=== PATIENT | male | born 1970 | race Caucasian/White ===

== ENCOUNTER 2023-05-27 10:56 | Emergency (ER) | payer BC, OTHER, SELFPAY ==
[2023-05-27 11:02] VITALS: BP 162/95
[2023-05-27 11:03] VITALS: PULSE 94; O2SAT 93
--- NOTE | 2023-05-27 11:06 | DI.RAD.S_ITS ---
PROCEDURE: XR CHEST 2V INDICATIONS: short of breath TECHNIQUE: 2 views of the chest were acquired. COMPARISON: [facility], , CHEST 2 VIEW, 12/02/2016, 9:35. FINDINGS: Surgical changes and devices: None. Lungs and pleura: Pulmonary vascular congestion is seen. Subtle patchy opacities are seen in bilateral infrahilar region. No pleural effusions or pneumothorax. Mediastinum: Mediastinal contours are normal. Heart size is normal. Bones and chest wall: No suspicious bony abnormalities. Soft tissues appear unremarkable. IMPRESSION: Mild pulmonary vascular congestion. Small bilateral infrahilar infiltrates versus atelectasis cannot be excluded. No pleural effusion or pneumothorax. Dictated by: Jama Allen M.D. on 05/27/2023 at 12:09 Approved by: Jama Allen M.D. on 05/27/2023 at 12:13
[2023-05-27 11:08] VITALS: BP 162/95; PULSE 92; RESP 22; TEMP 36.8; O2SAT 93; BMI 36.8
--- NOTE | 2023-05-27 11:20 | ED_ITS ---
HPI - URI/Sore Throat <Silvino Roberts PA-C - Last Filed: 05/27/23 13:35> General Chief Complaint: Upper Respiratory Symptoms Stated Complaint: chest cold poss phneumnia Time Seen by Provider: 05/27/23 11:10 Source: patient Mode of arrival: Ambulatory History of Present Illness HPI Narrative: This is a 52-year-old male presents to emergency depart due to Three days of chest congestion, headache, fever, cough, diarrhea. No blood in the stool. States cough is productive. Has not COVID tested. Reports a productive cough with ?green gunk stuff? and shortness of breath. History of pneumonia in 2017 and is curious if it is the same. Denies chest pain, abdominal pain, or any other concerning signs or symptoms. Related Data Home Medications Medication Instructions Recorded Confirmed lisinopril 40 mg tablet 40 mg PO BEDTIME 05/27/23 06/02/23 Previous Rx's Medication Instructions Recorded albuterol sulfate 1.25 mg/3 mL 1.25 mg (3 mL) inhalation Q4-6H 06/03/23 solution for nebulization PRN shortness of breath or wheezing #75 mL albuterol sulfate 90 mcg/actuation 2 puff inhalation Q6H PRN 06/03/23 aerosol inhaler shortness of breath or wheezing 30 days #8.5 grams nebulizer and compressor #1 ea 06/03/23 Allergies Allergy/AdvReac Type Severity Reaction Status Date / Time No Known Drug Allergies Allergy Verified 06/02/23 13:25 Review of Systems <Silvino Roberts PA-C - Last Filed: 05/27/23 13:35> Review of Systems Narrative: GENERAL: Reports fevers Denies chills, fatigue, malaise, sweats. HEENT: Denies sinus pain, ear pain, sore throat, difficulty swallowing, dizziness. RESPIRATORY: Reports chest congestion, productive cough, shortness of breath CARDIOVASCULAR: Denies chest pain, palpitations, orthopnea, edema, GASTROINTESTINAL: Denies nausea, vomiting, abdominal pain, diarrhea, constipation, melena. : Denies dysuria, frequency, incontinence, hematuria, urinary retention. MUSCULOSKELETAL: denies weakness, joint pain, or bony pain SKIN: Denies rash, skin lesions, or other NEUROLOGIC: Denies weakness, headache, numbness, change in speech, confusion, seizures, incoordination. PSYCHIATRIC: No concerning psychosocial issues. 12 point review of systems is negative except for those stated above Patient History <Silvino Roberts PA-C - Last Filed: 05/27/23 13:35> Medical History Hypertension Smoker Surgical History (Updated 06/02/23 @ 17:43 by Neptali James DO) No pertinent past surgical history Family History (Updated 06/02/23 @ 17:43 by Neptali James DO) Mother No pertinent past medical history Father No pertinent past medical history Social History household members: spouse Smoking Status: Current every day smoker alcohol intake: current Smoking Status: Current every day smoker alcohol intake frequency: a few times a week Substance Use Type: does not use Exam <Silvino Roberts PA-C - Last Filed: 05/27/23 13:35> Narrative Exam Narrative: GENERAL: Well-developed patient, in mild distress. HEAD: Atraumatic. Normocephalic. EYES: Pupils equal round and reactive. Extraocular motions intact. No scleral icterus. No injection or drainage. ENT: Nose without bleeding, purulent drainage. Throat without erythema, tonsillar hypertrophy or exudate. Airway patent. NECK: Trachea midline. Non tender CARDIOVASCULAR: Regular rate and rhythm without murmurs, gallops, or rubs. RESPIRATORY: Coarse breath sounds bilaterally, no wheezing GASTROINTESTINAL: Abdomen soft, non-tender, nondistended. EXTREMITIES: No edema or joint tenderness. BACK: Nontender without deformity or crepitance. No flank tenderness. NEURO: AOx3. SKIN: No rash or erythema of visible areas Initial Vital Signs Initial Vital Signs: Vital Signs Blood Pressure 162/95 H 05/27/23 11:02 <Valentino Pike MD - Last Filed: 06/10/23 12:53> Initial Vital Signs Initial Vital Signs: Vital Signs Blood Pressure 162/95 H 05/27/23 11:02 Course <Silvino Roberts PA-C - Last Filed: 05/27/23 13:35> Orders Ordered: Discontinued Medications Albuterol/Ipratropium (Albuterol/Ipratropium 3 Ml Ampul) 3 ml INH NOW ONE Stop: 05/27/23 11:27 Last Admin: 05/27/23 11:29 Dose: 3 ml Documented By: AARON Vital Signs Vital signs: Vital Signs - 8 hr 05/27/23 11:02 05/27/23 11:03 05/27/23 11:08 Temperature 98.2 F Pulse Rate 94 H 92 H Respiratory Rate 22 Blood Pressure 162/95 H 162/95 H Pulse Oximetry 93 93 Oxygen Delivery Method Room Air 05/27/23 11:30 Temperature Pulse Rate 97 H Respiratory Rate 18 Blood Pressure Pulse Oximetry 92 Oxygen Delivery Method Room Air <Valentino Pike MD - Last Filed: 06/10/23 12:53> Orders Ordered: Discontinued Medications Albuterol/Ipratropium (Albuterol/Ipratropium 3 Ml Ampul) 3 ml INH NOW ONE Stop: 05/27/23 11:27 Last Admin: 05/27/23 11:29 Dose: 3 ml Documented By: AARON Vital Signs Vital signs: Vital Signs - 8 hr 05/27/23 11:02 05/27/23 11:03 05/27/23 11:08 Temperature 98.2 F Pulse Rate 94 H 92 H Respiratory Rate 22 Blood Pressure 162/95 H 162/95 H Pulse Oximetry 93 93 Oxygen Delivery Method Room Air 05/27/23 11:30 Temperature Pulse Rate 97 H Respiratory Rate 18 Blood Pressure Pulse Oximetry 92 Oxygen Delivery Method Room Air MDM - URI/Sore Throat <Silvino Roberts PA-C - Last Filed: 05/27/23 13:35> Lab Data 05/27/23 12:25 05/27/23 12:25 Labs: Lab Results 05/27/23 05/27/23 Range/Units 11:11 12:25 WBC 10.9 (4.5-11.0) X10^3/uL RBC 4.90 (4.5-5.9) X10^6/uL Hgb 16.0 (13.5-17.5) g/dL Hct 46.0 (41-53) % MCV 93.7 (80-100) fL MCH 32.6 (26-34) PG MCHC 34.8 (30-36) % RDW 12.6 (11.6-14.8) % Plt Count 154 (150-400) X10^3/uL Neut % (Auto) 84.0 H (50-75) % Lymph % (Auto) 5.6 L (25-40) % [place] % (Auto) 9.6 (3-14) % Eos % (Auto) 0.3 L (2-4) % Baso % (Auto) 0.5 (0-2) % Neut # (Auto) 9200 H (4963-7504) /uL Lymph # (Auto) 600 L (6840-0895) /uL [place] # (Auto) 1000 H (0-900) /uL Eos # (Auto) 0 (0-450) /uL Baso # (Auto) 100 (0-100) /uL Sodium 134 L (137-145) mmol/L Potassium 4.6 (3.4-5.1) mmol/L Chloride 96 L (98-107) mmol/L Carbon Dioxide 32 (22-32) mmol/L BUN 11 (9-20) mg/dL Creatinine 0.62 L (0.66-1.25) mg/dL Estimated GFR > 60 (>60) mL/min BUN/Creatinine Ratio 17.7 (6-22) Glucose 103 H (70-100) mg/dL Calcium 9.7 (8.4-10.2) mg/dL Total Bilirubin 1.2 (0.2-1.3) mg/dL AST 39 (17-59) IU/L ALT 34 (<50) IU/L Alkaline Phosphatase 58 (38-126) U/L NT-Pro-B Natriuret Pep 44 (<125) pg/mL Total Protein 7.9 (6.3-8.2) g/dL Albumin 4.1 (3.5-5.0) g/dL Globulin 3.8 (1.7-4.1) g/dL Albumin/Globulin Ratio 1.1 (1.0-2.8) SARS-CoV-2 (PCR) Negative (Negative) Influenza A (RT-PCR) Flu a positive H (NEGATIVE) Influenza B (RT-PCR) Flu b negative (NEGATIVE) RSV (PCR) Negative (Negative) Imaging Data Chest x-ray: Radiologist's Impression: [address] [id number] XRay Report Signed Patient: Nam Andujar MR#: [id number] : 1970 Acct:[id number] Age/Sex: 52 / M Date of Service: 05/27/23 Loc: ED Accession Number: [id number] Procedure: XR chest 2V Ordering Provider: Valentino Pike MD PROCEDURE: XR CHEST 2V INDICATIONS: short of breath TECHNIQUE: 2 views of the chest were acquired. COMPARISON: [facility], , CHEST 2 VIEW, 12/02/2016, 9:35. FINDINGS: Surgical changes and devices: None. Lungs and pleura: Pulmonary vascular congestion is seen. Subtle patchy opacities are seen in bilateral infrahilar region. No pleural effusions or pneumothorax. Mediastinum: Mediastinal contours are normal. Heart size is normal. Bones and chest wall: No suspicious bony abnormalities. Soft tissues appear unremarkable. IMPRESSION: Mild pulmonary vascular congestion. Small bilateral infrahilar infiltrates versus atelectasis cannot be excluded. No pleural effusion or pneumothorax. Dictated by: Jama Allen M.D. on 05/27/2023 at 12:09 Approved by: Jama Allen M.D. on 05/27/2023 at 12:13 MDM Narrative Medical decision making narrative: MDM * differential diagnosis includes but not limited to COVID, influenza, pneumonia, RSV, viral illness * Prior records reviewed: Patient has not been to this emergency department in the past * My lab interpretation: BMP unremarkable, CMP showed no significant changes. CBC showed no leukocytosis. Respiratory panel positive for influenza A. * My imgaing interpretation: Chest x-ray showed mild pulmonary vascular congestion as well as small bilateral infrahilar infiltrates versus atelectasis. * Clinical Decision Rules/Scores evaluated: None * Independent discussions with: None ED Course: This is a 52-year-old male presents to the emergency department complaining of sinus congestion that is spread to his chest. Lab work showed no leukocytosis but viral panel was positive for influenza A. We will treat with Tamiflu as patient has a possible history of COPD. Chest x-ray did show possible small bilateral infrahilar infiltrates versus atelectasis which was discussed with my attending physician. Elected to not treat for any kind of pneumonia. Shared Decision Making: Discussed plan with patient who is comfortable with the plan. Social Considerations: None Disposition: Discharged to home <Valentino Pike MD - Last Filed: 06/10/23 12:53> Lab Data Labs: Lab Results 05/27/23 05/27/23 Range/Units 11:11 12:25 WBC 10.9 (4.5-11.0) X10^3/uL RBC 4.90 (4.5-5.9) X10^6/uL Hgb 16.0 (13.5-17.5) g/dL Hct 46.0 (41-53) % MCV 93.7 (80-100) fL MCH 32.6 (26-34) PG MCHC 34.8 (30-36) % RDW 12.6 (11.6-14.8) % Plt Count 154 (150-400) X10^3/uL Neut % (Auto) 84.0 H (50-75) % Lymph % (Auto) 5.6 L (25-40) % [place] % (Auto) 9.6 (3-14) % Eos % (Auto) 0.3 L (2-4) % Baso % (Auto) 0.5 (0-2) % Neut # (Auto) 9200 H (2226-5127) /uL Lymph # (Auto) 600 L (5199-1946) /uL [place] # (Auto) 1000 H (0-900) /uL Eos # (Auto) 0 (0-450) /uL Baso # (Auto) 100 (0-100) /uL Sodium 134 L (137-145) mmol/L Potassium 4.6 (3.4-5.1) mmol/L Chloride 96 L (98-107) mmol/L Carbon Dioxide 32 (22-32) mmol/L BUN 11 (9-20) mg/dL Creatinine 0.62 L (0.66-1.25) mg/dL Estimated GFR > 60 (>60) mL/min BUN/Creatinine Ratio 17.7 (6-22) Glucose 103 H (70-100) mg/dL Calcium 9.7 (8.4-10.2) mg/dL Total Bilirubin 1.2 (0.2-1.3) mg/dL AST 39 (17-59) IU/L ALT 34 (<50) IU/L Alkaline Phosphatase 58 (38-126) U/L NT-Pro-B Natriuret Pep 44 (<125) pg/mL Total Protein 7.9 (6.3-8.2) g/dL Albumin 4.1 (3.5-5.0) g/dL Globulin 3.8 (1.7-4.1) g/dL Albumin/Globulin Ratio 1.1 (1.0-2.8) SARS-CoV-2 (PCR) Negative (Negative) Influenza A (RT-PCR) Flu a positive H (NEGATIVE) Influenza B (RT-PCR) Flu b negative (NEGATIVE) RSV (PCR) Negative (Negative) Discharge Plan Departure Patient Disposition: Home Clinical Impression: Influenza A Instructions: DI for Influenza -- Adult Activity Restrictions/Additional Instructions: Thank you for coming to the [facility] Emergency Department today. Your testing came back positive for influenza A. Please take the antivirals as prescribed. I also do recommend you speak with your primary care provider for possible COPD workup as this maybe a possibility for you. I sent your medication to [facility] in [place]. I hope you feel better soon. Please follow up with your primary care provider within a week if your symptoms continue. If you do not have a primary care provider please contact the [facility] Resource line at [phone]. They will ask some questions about your medical history and help you get set up with a provider in the community. Prescriptions: No Action lisinopril 40 mg Tablet 40 mg PO BEDTIME albuterol sulfate 1.25 mg/3 mL solution for nebulization 1.25 mg inhalation Q4-6H PRN (Reason: shortness of breath or wheezing) Qty: 75 0RF albuterol sulfate 90 mcg/actuation HFA aerosol inhaler 2 puff inhalation Q6H PRN (Reason: shortness of breath or wheezing) 30 Days Qty: 8.5 0RF (DME) nebulizer and compressor Device See Rx Instructions .Route Qty: 1 0RF Rx Instructions: One nebulizer and compressor Referrals: Maria Dolores Edwards ARNP [Primary Care Provider] - Stand Alone Forms: Patient Portal/API, Work Release Note ED Sign-out <Valentino Pike MD - Last Filed: 06/10/23 12:53> Cosign ED Attending Cosignature Attestation: I was immediately available in the department for consultation. This documentation has been reviewed and I agree with assessment and plan. Supervised by Valentino Pike MD
[2023-05-27] MEDS: ALBUTEROL/IPRATROPIUM 3 ML AMPUL INH (11:29)
[2023-05-27 11:30] VITALS: PULSE 97; RESP 18; O2SAT 92
[2023-05-27 11:51] LABS: Influenza B - CEPHEID Flu B NEGATIVE (NEGATIVE); Respiratory Syncytial Virus Negative (Negative)
[2023-05-27 12:38] LABS: COVID-19 CEPHEID 4-PLEX PCR Negative (Negative)
[2023-05-27 12:39] LABS: Add Manual Diff / Slide Review NO; Basophils Absolute Auto 100 /uL (0-100); Basophils Percent Auto 0.5 % (0-2); Eosinophils Absolute Auto 0 /uL (0-450); Eosinophils Percent Auto 0.3 % (2-4); Lymphocytes Absolute Auto 600 /uL (1100-4500); Lymphocytes Percent Auto 5.6 % (25-40); Mean Corpuscular HGB Conc 34.8 % (30-36); Mean Corpuscular Hemoglobin 32.6 PG (26-34); Mean Corpuscular Volume 93.7 fL (80-100); Monocytes Absolute Auto 1000 /uL (0-900); Monocytes Percent Auto 9.6 % (3-14); Neutrophils Absolute Auto 9200 /uL (1500-7000); Platelet Count 154 X10^3/uL (150-400); Red Cell Distribution Width 12.6 % (11.6-14.8); White Blood Cell Count 10.9 X10^3/uL (4.5-11.0)
[2023-05-27 12:40] LABS: Influenza A - CEPHEID Flu A POSITIVE (NEGATIVE)
[2023-05-27 12:50] LABS: Alanine Aminotransferase 34 IU/L (<50); Albumin 4.1 g/dL (3.5-5.0); Albumin Globulin Ratio 1.1 (1.0-2.8); Alkaline Phosphatase 58 U/L (38-126); Aspartate Aminotransferase 39 IU/L (17-59); BUN Creatinine Ratio 17.7 (6-22); Bilirubin Total 1.2 mg/dL (0.2-1.3); Blood Urea Nitrogen 11 mg/dL (9-20); Calcium 9.7 mg/dL (8.4-10.2); Carbon Dioxide 32 mmol/L (22-32); Chloride 96 mmol/L (98-107); Estimated Glomerular Filt Rate > 60 mL/min (>60); Globulin 3.8 g/dL (1.7-4.1); Glucose 103 mg/dL (70-100); HEMOLYSIS 39 (0-50); Potassium 4.6 mmol/L (3.4-5.1); Sodium 134 mmol/L (137-145); Total Protein 7.9 g/dL (6.3-8.2)
[2023-05-27 12:58] LABS: NT-proBNP (BNP-Adult 18+) 44 pg/mL (<125)
== END 2023-05-27 13:12 | disposition home or self-care (01) ==
PROVIDERS: Emergency Medicine; Emergency Provider Physician Assistant Medical; PCP Nurse Practitioner Family
DX: J10.1 Influenza due to other identified influenza virus with other respiratory manifestations (principal); F17.210 Nicotine dependence, cigarettes, uncomplicated
CPT/HCPCS: 0241U; 36415; 71046; 80053; 83880; 85025; 94640; 99284

== ENCOUNTER 2023-06-02 13:15 | Observation (INO) | payer BC, OTHER, SELFPAY ==
[2023-06-02] VITALS (17 sets, daily range): BP systolic 143–155; BP diastolic 67–98; PULSE 82–98; RESP 16–30; TEMP 35.7–37.4; O2SAT 91–99; BMI 34.9
--- NOTE | 2023-06-02 13:28 | ED_ITS ---
HPI - General Adult General Chief complaint: Fever Stated complaint: flu/poss pnemonia Time Seen by Provider: 06/02/23 13:28 Source: patient Mode of arrival: Wheelchair History of Present Illness HPI narrative: 52-year-old gentleman with a history of hypertension who was diagnosed with influenza a on the and feeling worse with increasing cough and significant exertional dyspnea. Unable to speak full sentences on initial presentation. He is not on home oxygen but does have a long smoking history. Does not carry a diagnosis of COPD but does have inhalers that he has used at home in the past. He notes significant chest tightness, increasing purulent sputum, increasing fevers, increasing general fatigue. He is not having abdominal pain, nausea, vomiting, diarrhea, palpitations or overt chest pain. Related Data Home Medications Medication Instructions Recorded Confirmed lisinopril 40 mg tablet 40 mg PO BEDTIME 05/27/23 06/02/23 Allergies Allergy/AdvReac Type Severity Reaction Status Date / Time No Known Drug Allergies Allergy Verified 06/02/23 13:25 Review of Systems Review of Systems Narrative: Pertinent positive and negative findings as per HPI Patient History Medical History Hypertension Smoker Surgical History (Updated 06/02/23 @ 17:43 by Neptlai James DO) No pertinent past surgical history Family History (Updated 06/02/23 @ 17:43 by Neptali James DO) Mother No pertinent past medical history Father No pertinent past medical history Social History Smoking Status: Current every day smoker Smoking Status: Current every day smoker alcohol intake frequency: a few times a week Substance Use Type: does not use Exam Initial Vital Signs Initial Vital Signs: Vital Signs Temperature 99.3 F 06/02/23 13:21 Pulse Rate 98 H 06/02/23 13:21 Respiratory Rate 30 H 06/02/23 13:21 Blood Pressure 143/82 H 06/02/23 13:21 Pulse Oximetry 92 06/02/23 13:21 Oxygen Delivery Method Room Air 06/02/23 13:21 General: Acutely ill-appearing with significant productive cough, speaking in poor to 5 word sentences is Able to give a complete and coherent history. HEENT: Moist mucous membranes, normal sclera with reactive pupils, Neck: No JVD, supple,. No cervical adenopathy Respiratory: Lungs with scattered wheeze and rhonchi. Diminished overall air movement Cardiac: Slight tachycardia but otherwise Regular rate and rhythm no murmurs no bruits Abdomen: Soft, nontender, good bowel tones, no flank pain Skin: Warm and dry, no rashes Neurologic: Globally weak but Grossly neurologically intact with no obvious asymmetries or abnormalities Extremities: No trauma, well perfused, no lower extremity edema Psych: Cooperative, appropriate insight and affect Course Orders Ordered: ED Orders 06/02/23 13:29 XR chest 2V Stat 06/02/23 13:40 Complete Blood Count AUTO DIFF Stat Comprehensive Metabolic Panel Stat Lactate (Lactic Acid) Stat 06/02/23 13:45 Blood Culture Stat 06/02/23 14:47 VBG [Venous Blood Gas] Stat 06/02/23 14:51 CT angio chest PE protocol Stat 06/02/23 14:58 Sputum Culture Stat 06/02/23 15:20 BNP [NT-proBNP (BNP-Adult 18+)] Stat Trop I [Troponin I] Stat 06/02/23 15:50 ABG [Arterial Blood Gas] Stat Acetaminophen (Acetaminophen 325 Mg Tablet) 650 mg PO Q6H PRN PRN Reason: Fever/Mild Pain (1-3) Albuterol (Albuterol 2.5 Mg/3 Ml Neb (Adult)) 2.5 mg INH [id number] PRN PRN Reason: Shortness Of Breath Doxycycline Hyclate (Doxycycline Hyclate 100 Mg Tablet) 100 mg PO BID [facility] Enoxaparin Sodium (Enoxaparin 40 Mg/0.4 Ml Syringe) 40 mg SUBCUT DAILY [facility] Ceftriaxone Sodium 1,000 mg/ (Sodium Chloride) 100 mls @ 200 mls/hr IV Q24H [facility] Lisinopril (Lisinopril 20 Mg Tablet) 40 mg PO BEDTIME [facility] Naloxone HCl (Naloxone 0.4 Mg/Ml Vial) 0.2 mg IV Q2MIN PRN PRN Reason: Opiate Reversal Ondansetron HCl (Ondansetron 4 Mg/2 Ml Inj) 4 mg IV Q8HR PRN PRN Reason: Nausea And Vomiting Prednisone (Prednisone 20 Mg Tablet) 40 mg PO DAILY [facility] Discontinued Medications Albuterol/Ipratropium (Albuterol/Ipratropium 3 Ml Ampul) 3 ml INH NOW ONE Stop: 06/02/23 13:30 Last Admin: 06/02/23 13:51 Dose: 3 ml Documented By: PILO Benzonatate (Benzonatate 100 Mg Capsule) 100 mg PO NOW ONE Stop: 06/02/23 13:30 Last Admin: 06/02/23 13:46 Dose: 100 mg Documented By: JIM Sodium Chloride (Normal Saline 0.9%) 1,000 mls @ 1,000 mls/hr IV BOLUS ONE Stop: 06/02/23 14:28 Last Infusion: 06/02/23 14:58 Dose: Infused Documented By: Admin: 06/02/23 13:47 Dose: 1,000 mls/hr Documented By: JIM Piperacillin Sod/Tazobactam (Sod 4.5 gm/ Sodium Chloride) 100 mls @ 200 mls/hr IV NOW ONE Stop: 06/02/23 14:50 Last Infusion: 06/02/23 15:55 Dose: Infused Documented By: Admin: 06/02/23 15:04 Dose: 200 mls/hr Documented By: KEVYN Ketorolac Tromethamine (Ketorolac 30 Mg/Ml Vial) 15 mg IV NOW ONE Stop: 06/02/23 13:30 Last Admin: 06/02/23 13:46 Dose: 15 mg Documented By: JIM Methylprednisolone (Methylprednisolone 125 Mg/2 Ml Vial) 125 mg IV NOW ONE Stop: 06/02/23 14:50 Last Admin: 06/02/23 15:05 Dose: 125 mg Documented By: KEVYN Vital Signs Vital signs: Vital Signs - 8 hr 06/02/23 13:21 06/02/23 13:46 06/02/23 13:54 Temperature 99.3 F 99.3 F Pulse Rate 98 H Respiratory Rate 30 H Blood Pressure 143/82 H Pulse Oximetry 92 99 Oxygen Delivery Method Room Air Room Air 06/02/23 14:36 06/02/23 14:44 06/02/23 14:44 Temperature Pulse Rate 92 H Respiratory Rate 24 Blood Pressure 147/87 H Pulse Oximetry 92 92 Oxygen Delivery Method 06/02/23 15:05 06/02/23 15:06 06/02/23 15:06 Temperature Pulse Rate 93 H 96 H Respiratory Rate 25 H Blood Pressure 149/98 H Pulse Oximetry 93 93 Oxygen Delivery Method 06/02/23 15:30 06/02/23 15:30 06/02/23 16:00 Temperature Pulse Rate 90 Respiratory Rate 24 Blood Pressure 150/70 H 150/67 H Pulse Oximetry 94 Oxygen Delivery Method 06/02/23 16:00 06/02/23 16:30 06/02/23 16:30 Temperature Pulse Rate 87 87 Respiratory Rate 22 22 Blood Pressure 146/73 H Pulse Oximetry 92 92 Oxygen Delivery Method Room Air Room Air Medical Decision Making Lab Data 06/02/23 13:40 06/02/23 13:40 Labs: Lab Results 06/02/23 06/02/23 06/02/23 Range/Units 13:40 15:20 15:50 WBC 19.0 H (4.5-11.0) X10^3/uL RBC 4.77 (4.5-5.9) X10^6/uL Hgb 15.3 (13.5-17.5) g/dL Hct 44.4 (41-53) % MCV 92.9 (80-100) fL MCH 32.0 (26-34) PG MCHC 34.5 (30-36) % RDW 12.9 (11.6-14.8) % Plt Count 311 (150-400) X10^3/uL Neut % (Auto) 86.2 H (50-75) % Lymph % (Auto) 5.6 L (25-40) % [place] % (Auto) 7.3 (3-14) % Eos % (Auto) 0.5 L (2-4) % Baso % (Auto) 0.4 (0-2) % Neut # (Auto) 64530 H (0496-1279) /uL Lymph # (Auto) 1100 (1156-0687) /uL [place] # (Auto) 1400 H (0-900) /uL Eos # (Auto) 100 (0-450) /uL Baso # (Auto) 100 (0-100) /uL ABG Sample Site Right radial ABG pH 7.45 (7.35-7.45) ABG pCO2 38.8 (35-45) mmHg ABG pO2 59 L (80-100) mmHg ABG HCO3 27 (23-27) mmol/L ABG Total CO2 28 H (23-27) mmol/L ABG O2 Saturation 91 L (95-100) % ABG Base Excess 3.0 (-2-3) mmol/L FiO2 21 Sodium 134 L (137-145) mmol/L Potassium 4.5 (3.4-5.1) mmol/L Chloride 99 (98-107) mmol/L Carbon Dioxide 28 (22-32) mmol/L BUN 13 (9-20) mg/dL Creatinine 0.59 L (0.66-1.25) mg/dL Estimated GFR > 60 (>60) mL/min BUN/Creatinine Ratio 22.0 (6-22) Glucose 111 H (70-100) mg/dL Lactate 1.0 (0.7-2.1) mmol/L Calcium 9.7 (8.4-10.2) mg/dL Total Bilirubin 0.8 (0.2-1.3) mg/dL AST 31 (17-59) IU/L ALT 52 H (<50) IU/L Alkaline Phosphatase 75 (38-126) U/L Troponin I < 0.012 (0.01-0.034) ng/mL NT-Pro-B Natriuret Pep 53 (<125) pg/mL Total Protein 8.5 H (6.3-8.2) g/dL Albumin 4.1 (3.5-5.0) g/dL Globulin 4.4 H (1.7-4.1) g/dL Albumin/Globulin Ratio 0.9 L (1.0-2.8) MDM Narrative Medical decision making narrative: CC: Patient seen on May 27 diagnosed with influenza a, worsening respiratory distress Complicating co-morbidities: COPD with a long smoking history, hypertension Data collected from: patient Medical records reviewed: Labs and notes from his May 27 visit are reviewed Differential considered: Influenza pneumonia, bacterial pneumonia, sepsis, COPD exacerbation, PE, acute coronary syndrome Exam documented above, pertinent findings include: Productive cough, scattered wheeze and rhonchi. Minimal response to DuoNeb. Lab Test results independently reviewed as above. Pertinent findings: CBC: Significant leukocytosis at 19,000 with 86% neutrophils. No significant anemia ABG shows a pH of 7.45, on room air PO2 is 59, CO2 is 28. Chemistries are relatively reassuring with no acute kidney injury Lactate is normal at 1 Imaging studies independently reviewed: Chest x-ray shows [id number] diffuse lung disease similar to prior CT angiogram shows no evidence of pulmonary embolism but does suggest tree in bud findings in the pulmonary parenchyma suggestive of infectious etiology beyond a viral infection Consultations:DR James, hospitalist Treatments: Fluid, Solu-Medrol, Zosyn antibiotics, Toradol parenterally, benzonatate to help with cough, DuoNeb Re-evaluations: Patient is feeling significantly better however saturations are still at 91% and when he is up and walking dropped down to 89% with respiratory rate remaining in the mid 30s. He feels that hospitalization would be prudent as well. Discussion: 52-year-old gentleman with influenza a, probable COPD but has not yet been formally diagnosed and now, increasing exertional dyspnea, productive cough, fevers and significantly elevated leukocytosis suggesting secondary pneumonia. He is relatively hypoxic on room air and CO2 is low suggesting he is tachypneic in an effort to compensate. will talk with hospitalist service about hospital admission. He is not complaining of overt chest pain at this time but will add troponin as well as BNP. He is not meeting criteria for severe sepsis or septic shock however with his increased work of breathing with obvious decline in the setting of known influenza a and now bacterial superinfection with a significant exertional dyspnea I am concerned for worsening respiratory failure and believe hospitalization would be appropriate Additional Information: Severe Sepsis Criteria [x ] bacterial source of infection suspected and documented [ x ] 2 SIRS Criteria met [ x ] HR >90 [ x] RR >20 [ ] fever or hypothermia [ x ] leukocytosis/leukopenia/bandemia [ ] Evidence of at least 1 organ system dysfunction [ ] Lactate > 2 [ ] BP < 90 or MAP <65, >40mm decrease from normal baseline [ ] Creat > 2.0 [ ] T. Bili > 2.0 [ ] platelet count < 100k [ ] altered mental status [ ] mechanical ventilation [ ] provider documentation of severe sepsis Severe Sepsis Determination. the patient has been screened and [ ] DOES meet criteria for severe sepsis [ x ] DOES NOT meet criteria for severe sepsis Goal directed treatment Within 3 hours [x ] blood cx drawn prior to abx [ x ] broad spectrum abx started [ x ] lactic acid level checked [ ] lactic redrawn within 6 hours if >2.0 Septic Shock Criteria [ ] lactic > 4 at any time [ ] SBP ,90 or MAP , 65 [ ] documentation of septic shock Time Septic Shock diagnosed: [ ] Septic Shock Determination. the patient has been screened and [ ] DOES meet criteria for septic shock [ x ] DOES NOT meet criteria for septic shock Discharge Plan Departure Patient Disposition: Admitted as Observation Clinical Impression: Influenza A, COPD exacerbation Pneumonia Qualifiers: Pneumonia type: due to unspecified organism Admit Date/Time: 06/02/23 16:59 Admit Provider: Neptali James
--- NOTE | 2023-06-02 13:29 | DI.RAD.S_ITS ---
PROCEDURE: XR CHEST 2V INDICATIONS: cough TECHNIQUE: 2 views of the chest were acquired. COMPARISON: [facility], , XR CHEST 2V, 05/27/2023, 11:10. [facility], , CHEST 2 VIEW, 12/02/2016, 9:35. FINDINGS: Surgical changes and devices: None. Lungs and pleura: [id number] diffuse lung disease is similar to prior. No pleural effusions. Mediastinum: Normal heart size Bones and chest wall: Degenerative changes. IMPRESSION: [id number] diffuse lung disease is similar to prior, representing infection or edema. Consider future imaging surveillance to assess for resolution. Dictated by: Carroll Judge M.D. on 06/02/2023 at 14:54 Approved by: Carroll Judge M.D. on 06/02/2023 at 14:55
[2023-06-02] MEDS: BENZONATATE 100 MG CAPSULE PO (13:46)
[2023-06-02] MEDS: KETOROLAC 30 MG/ML VIAL 15 MG IV (13:46)
[2023-06-02] MEDS: SODIUM CHLORIDE 0.9% 1,000 ML 1000 ML IV (13:47)
[2023-06-02 13:50] LABS: Add Manual Diff / Slide Review NO; Basophils Absolute Auto 100 /uL (0-100); Basophils Percent Auto 0.4 % (0-2); Eosinophils Absolute Auto 100 /uL (0-450); Eosinophils Percent Auto 0.5 % (2-4); Hematocrit 44.4 % (41-53); Hemoglobin 15.3 g/dL (13.5-17.5); Lymphocytes Absolute Auto 1100 /uL (1100-4500); Lymphocytes Percent Auto 5.6 % (25-40); Mean Corpuscular HGB Conc 34.5 % (30-36); Mean Corpuscular Volume 92.9 fL (80-100); Monocytes Absolute Auto 1400 /uL (0-900); Monocytes Percent Auto 7.3 % (3-14); Neutrophils Absolute Auto 16400 /uL (1500-7000); Neutrophils Percent Auto 86.2 % (50-75); Platelet Count 311 X10^3/uL (150-400); Red Blood Cell Count 4.77 X10^6/uL (4.5-5.9); Red Cell Distribution Width 12.9 % (11.6-14.8)
[2023-06-02] MEDS: ALBUTEROL/IPRATROPIUM 3 ML AMPUL INH (13:51)
[2023-06-02 14:01] LABS: Alanine Aminotransferase 52 IU/L (<50); Albumin 4.1 g/dL (3.5-5.0); Albumin Globulin Ratio 0.9 (1.0-2.8); Alkaline Phosphatase 75 U/L (38-126); Aspartate Aminotransferase 31 IU/L (17-59); Bilirubin Total 0.8 mg/dL (0.2-1.3); Blood Urea Nitrogen 13 mg/dL (9-20); Calcium 9.7 mg/dL (8.4-10.2); Carbon Dioxide 28 mmol/L (22-32); Chloride 99 mmol/L (98-107); Estimated Glomerular Filt Rate > 60 mL/min (>60); Globulin 4.4 g/dL (1.7-4.1); Glucose 111 mg/dL (70-100); HEMOLYSIS < 15 (0-50); Potassium 4.5 mmol/L (3.4-5.1); Sodium 134 mmol/L (137-145); Total Protein 8.5 g/dL (6.3-8.2)
--- NOTE | 2023-06-02 14:51 | DI.CT.S_ITS ---
PROCEDURE: CT ANGIO CHEST PE PROTOCOL INDICATIONS: resp distress TECHNIQUE: After the administration of intravenous contrast, 2 mm thick sections acquired from the pulmonary apices to the posterior costophrenic angles. 3-dimensional maximum intensity projection (MIP) coronal and sagittal reformats were then acquired through the thorax. For radiation dose reduction, the following was used: automated exposure control, adjustment of mA and/or kV according to patient size. COMPARISON: [facility], CR, XR CHEST 2V, 06/02/2023, 14:02. FINDINGS: Image quality: Diagnostic. Pulmonary arteries: Pulmonary arteries are normal in size, and demonstrate no intraluminal filling defects to suggest central pulmonary embolism. Lungs and pleura: Generalized tree-in-bud type opacity can be seen, which is worst inferiorly. There is no focal consolidation. Mild emphysematous changes can be seen. No pleural effusions or pneumothorax. Central and peripheral airways are patent. Mediastinum: Heart size is normal, without pericardial effusion. Mild coronary artery calcification is seen. No mediastinal or hilar adenopathy. Thoracic aorta is normal in caliber and enhancement. Esophagus is normal in caliber, without hiatal hernia. Bones and chest wall: No suspicious bony lesions. Ribs and thoracic spine appear intact throughout. Age-appropriate bony degenerative changes are seen. No axillary or supraclavicular adenopathy. No thyroid nodules which require sonographic follow up, per consensus guidelines. Upper Abdomen: Visualized upper abdominal solid organs appear normal in the early arterial phase of enhancement. IMPRESSION: No pulmonary embolus. Tree-in-bud type opacity can be seen which is worst inferiorly. Emphysematous changes are seen, with subpleural bleb formation. Additional findings: Mild coronary artery calcification Dictated by: Parker Saucedo M.D. on 06/02/2023 at 14:35 Approved by: Parker Saucedo M.D. on 06/02/2023 at 14:38
[2023-06-02] MEDS: PIPERACILLIN/TAZO 4.5 GM in SODIUM CHLORIDE 0.9% 100 ML IV (15:04)
[2023-06-02] MEDS: methylPREDNISolone 125 MG/2 ML VIAL IV (15:05)
[2023-06-02 16:04] LABS: Fractionated Inspired Oxygen 21; HCO3 ABG 27 mmol/L (23-27); Oxygen Saturation ABG 91 % (95-100); PCO2 ABG 38.8 mmHg (35-45); PO2 ABG 59 mmHg (80-100); TCO2 ABG 28 mmol/L (23-27); pH ABG 7.45 (7.35-7.45)
[2023-06-02 16:05] LABS: Allen Test for ABG Passed? Yes, Passed; Blood Gas Collection Site Right Radial
[2023-06-02 17:16] LABS: Troponin I < 0.012 ng/mL (0.01-0.034)
--- NOTE | 2023-06-02 17:28 | PM.HP.1 ---
History of Present Illness History of Present Illness Date Patient Seen: 06/02/23 Time Patient Seen: 17:20 Chief complaint: flu/poss pnemonia Narrative: 52 M with PMH of HTN and tobacco use who presented to the ER today with shortness of breath. He was diagnosed with the flu approx. 6 days ago, had been having symptoms since approximately 05/21/23. Initially he had high fever to 103, fever, myalgia, weakness, and diarrhea which did slightly improve after he received tamiflu after an ER visit. He had no recurrence of fever but he presented today with the feeling that he couldn't breathe. He continues to have productive cough and yellow / green sputum. He has subjective fever and pleuritic chest pain. He denies other sick contacts, rash, joint pains or swelling. In the emergency room he was tachypnic into the 30s. CTA was negative for pneumonia but did show emphysematous changes and tree in bud opacities bilaterally. Labs showed a WBC of 19. He improved after 1L bolus, steroids, and a dose of zosyn but walked around and remained quite dyspnic and tachycardic, his lowest O2 was 89%. We discussed given his PSI score of 83, or class III risk, inpatient or outpatient treatment is reasonable at this time. Patient elected for continued observation in the hospital. He was admitted for further management of pneumonia and COPD exacerbation. [facility] Medical History Hypertension Smoker Surgical History (Updated 06/02/23 @ 17:43 by Neptali James DO) No pertinent past surgical history Family History (Updated 06/02/23 @ 17:43 by Neptali James DO) Mother No pertinent past medical history Father No pertinent past medical history Social History Smoking Status: Current every day smoker Meds Home Medications and Allergies Home Medications Medication Instructions Recorded Confirmed Type lisinopril 40 mg tablet 40 mg PO BEDTIME 05/27/23 06/02/23 History Allergies Allergy/AdvReac Type Severity Reaction Status Date / Time No Known Drug Allergies Allergy Verified 06/02/23 13:25 Review of Systems Review of Systems Narrative: All other systems reviewed with the patient and are negative unless otherwise stated. Exam Vital Signs (past 8 hours): - 06/02/23 13:21 06/02/23 13:46 06/02/23 13:54 Temperature 99.3 F 99.3 F Pulse Rate 98 H Respiratory Rate 30 H Blood Pressure 143/82 H Pulse Oximetry 92 99 Oxygen Delivery Method Room Air Room Air 06/02/23 14:36 06/02/23 14:44 06/02/23 14:44 Temperature Pulse Rate 92 H Respiratory Rate 24 Blood Pressure 147/87 H Pulse Oximetry 92 92 Oxygen Delivery Method 06/02/23 15:05 06/02/23 15:06 06/02/23 15:06 Temperature Pulse Rate 93 H 96 H Respiratory Rate 25 H Blood Pressure 149/98 H Pulse Oximetry 93 93 Oxygen Delivery Method 06/02/23 15:30 06/02/23 15:30 06/02/23 16:00 Temperature Pulse Rate 90 Respiratory Rate 24 Blood Pressure 150/70 H 150/67 H Pulse Oximetry 94 Oxygen Delivery Method 06/02/23 16:00 06/02/23 16:30 06/02/23 16:30 Temperature Pulse Rate 87 87 Respiratory Rate 22 22 Blood Pressure 146/73 H Pulse Oximetry 92 92 Oxygen Delivery Method Room Air Room Air Oxygen Delivery Method Room Air Narrative Exam Narrative: General:? Patient is well developed and well nourished, in no distress at this time. HEENT:? Normocephalic, atraumatic, extraocular muscles intact, oral pharynx is clear and mucous membranes are moist. Neck: supple and symmetric, trachea is midline, no cervical adenopathy. Negative for JVD Chest:? Normal AP diameter and contour without kyphoscoliosis, no tachypnea, equal chest rise bilaterally. Lungs:? b/l inspiratory wheeze improved with cough, no rhonchi or rales. Slight tachypnea. Cardio:?RRR no m/r/g. Abdomen: S NT ND. Musculoskeletal:? Muscle strength and tone are equal within normal limits, no deformity. Extremities: No edema or joint effusions. No cyanosis or clubbing. Skin:? Pale,? Warm to touch,dry and intact without rashes, ulcerations or petechiae.? Neuro:? Alert and orientated x3,? sensation to touch intact in all extremities, no gross deficits noted of cranial nerves. Psych:? Patient has a well-kept appearance, appropriate affect, mental status attitude thought context and judgment are appropriate for age. Objective Labs 06/02/23 13:40 06/02/23 13:40 Labs: Laboratory Results - last 24 hr 06/02/23 06/02/23 06/02/23 13:40 15:20 15:50 WBC 19.0 H RBC 4.77 Hgb 15.3 Hct 44.4 MCV 92.9 MCH 32.0 MCHC 34.5 RDW 12.9 Plt Count 311 Neut % (Auto) 86.2 H Lymph % (Auto) 5.6 L [place] % (Auto) 7.3 Eos % (Auto) 0.5 L Baso % (Auto) 0.4 Neut # (Auto) 58579 H Lymph # (Auto) 1100 [place] # (Auto) 1400 H Eos # (Auto) 100 Baso # (Auto) 100 ABG Sample Site Right radial ABG pH 7.45 ABG pCO2 38.8 ABG pO2 59 L ABG HCO3 27 ABG Total CO2 28 H ABG O2 Saturation 91 L ABG Base Excess 3.0 FiO2 21 Sodium 134 L Potassium 4.5 Chloride 99 Carbon Dioxide 28 BUN 13 Creatinine 0.59 L Estimated GFR > 60 BUN/Creatinine Ratio 22.0 Glucose 111 H Lactate 1.0 Calcium 9.7 Total Bilirubin 0.8 AST 31 ALT 52 H Alkaline Phosphatase 75 Troponin I < 0.012 Total Protein 8.5 H Albumin 4.1 Globulin 4.4 H Albumin/Globulin Ratio 0.9 L Assessment & Plan Assessment & Plan narrative: 1. Superimposed bacterial pneumonia on influenza A - Sputum cultures with positive gram stain, continue ceftriaxone and doxycyline as MRSA more likely after flu infection. WBC 19 on admission and will continue to follow in the AM, check procalcitonin as well. - PSI score of 83 on admission, class III risk. - borderline hypoxia with O2 saturations as low as 89%, but also with COPD. - CTA negative for PE, does show bilateral tree in bud opacities consistent with pneumonia. 2. COPD with severe exacerbation - s/p methylprednisolone 125 mg in the ER. Continue prednisone 40 mg daily for 4 more days. - albuterol q2 prn for wheezing. - patient counseled on the relationship between smoking and COPD, continue to encourage cessation. - patient tachypnic, remains so despite treatments in the emergency room. 3. HTN - continue home lisinopril 40 mg 4. Obesity The patient is at much higher risk for medical and surgical complications because of their obesity. This increases the difficulty and complexity of medical and surgical interventions and increases the chances of poor outcomes such as morbidity and mortality. 5. Hyponatremia - asymptomatic and mild, continue to follow after 1L bolus in the ER with daily BMP. Code: Full, surrogate is patient's spouse DVT: Lovenox Daily Dispo: Admitted observation Discussed with ER provider for additional history and coordination of above assessment and plan. Discussed plan of care with patient and spouse. I have utilized all available immediate resources to obtain, update, or review the patient's current medications.
[2023-06-02 17:39] LABS: NT-proBNP (BNP-Adult 18+) 53 pg/mL (<125)
[2023-06-02] MEDS: cefTRIAXone 1,000 MG in SODIUM CHLORIDE 0.9% 100 ML 200 MG IV (19:10)
[2023-06-02] MEDS: lisinopriL 20 MG TABLET 40 MG PO (20:25)
[2023-06-02] MEDS: DOXYCYCLINE HYCLATE 100 MG TABLET PO (20:25)
[2023-06-02] MEDS: ALBUTEROL 2.5 MG/3 ML NEB (ADULT) INH (20:47)
[2023-06-03] VITALS (7 sets, daily range): BP systolic 101–146; BP diastolic 46–86; PULSE 56–89; RESP 16–19; TEMP 36.2–36.6; O2SAT 92–99
[2023-06-03] MEDS: BENZONATATE 100 MG CAPSULE PO ×2 (00:09→06:57)
[2023-06-03] MEDS: guaiFENesin ER 600 MG TAB PO (00:09)
[2023-06-03 05:48] LABS: Add Manual Diff / Slide Review NO; Basophils Absolute Auto 100 /uL (0-100); Basophils Percent Auto 0.5 % (0-2); Eosinophils Absolute Auto 0 /uL (0-450); Eosinophils Percent Auto 0.1 % (2-4); Hematocrit 41.6 % (41-53); Hemoglobin 14.6 g/dL (13.5-17.5); Lymphocytes Absolute Auto 900 /uL (1100-4500); Lymphocytes Percent Auto 5.4 % (25-40); Mean Corpuscular Hemoglobin 32.7 PG (26-34); Mean Corpuscular Volume 93.2 fL (80-100); Monocytes Absolute Auto 600 /uL (0-900); Monocytes Percent Auto 3.4 % (3-14); Neutrophils Absolute Auto 15500 /uL (1500-7000); Neutrophils Percent Auto 90.6 % (50-75); Platelet Count 292 X10^3/uL (150-400); Red Blood Cell Count 4.46 X10^6/uL (4.5-5.9); Red Cell Distribution Width 12.8 % (11.6-14.8); White Blood Cell Count 17.1 X10^3/uL (4.5-11.0)
[2023-06-03 06:01] LABS: Alanine Aminotransferase 47 IU/L (<50); Albumin 3.9 g/dL (3.5-5.0); Alkaline Phosphatase 68 U/L (38-126); Aspartate Aminotransferase 26 IU/L (17-59); BUN Creatinine Ratio 21.4 (6-22); Bilirubin Total 0.8 mg/dL (0.2-1.3); Blood Urea Nitrogen 12 mg/dL (9-20); Calcium 9.8 mg/dL (8.4-10.2); Carbon Dioxide 28 mmol/L (22-32); Chloride 101 mmol/L (98-107); Estimated Glomerular Filt Rate > 60 mL/min (>60); Globulin 4.1 g/dL (1.7-4.1); Glucose 144 mg/dL (70-100); HEMOLYSIS < 15 (0-50); Magnesium 2.1 mg/dL (1.6-2.3); Potassium 4.6 mmol/L (3.4-5.1); Sodium 134 mmol/L (137-145)
[2023-06-03 06:14] LABS: Procalcitonin 0.07 ng/mL (<0.5)
[2023-06-03] MEDS: DOXYCYCLINE HYCLATE 100 MG TABLET PO (08:51)
[2023-06-03] MEDS: predniSONE 20 MG TABLET 40 MG PO (08:51)
[2023-06-03] MEDS: ENOXAPARIN 40 MG/0.4 ML SYRINGE SUBCUT (08:51)
--- NOTE | 2023-06-03 09:21 | PM.DS.1 ---
History of Present Illness History of Present Illness Date Patient Seen: 06/03/23 Time Patient Seen: 09:21 Chief complaint: flu/poss pnemonia Narrative: 52 M with PMH of HTN and tobacco use who presented to the ER today with shortness of breath. He was diagnosed with the flu approx. 6 days ago, had been having symptoms since approximately 05/21/23. Initially he had high fever to 103, fever, myalgia, weakness, and diarrhea which did slightly improve after he received tamiflu after an ER visit. He had no recurrence of fever but he presented today with the feeling that he couldn't breathe. He continues to have productive cough and yellow / green sputum. He has subjective fever and pleuritic chest pain. He denies other sick contacts, rash, joint pains or swelling. In the emergency room he was tachypnic into the 30s. CTA was negative for pneumonia but did show emphysematous changes and tree in bud opacities bilaterally. Labs showed a WBC of 19. He improved after 1L bolus, steroids, and a dose of zosyn but walked around and remained quite dyspnic and tachycardic, his lowest O2 was 89%. We discussed given his PSI score of 83, or class III risk, inpatient or outpatient treatment is reasonable at this time. Patient elected for continued observation in the hospital. He was admitted for further management of pneumonia and COPD exacerbation. Discharge Providers Provider Date of admission: 06/02/23 16:59 Discharge Date: 06/03/23 Primary care physician: DEBORAH Boyle Discharge provider: Neptali James DO Summary Hospital Course Discharge Diagnosis: 1. Superimposed bacterial pneumonia on influenza A 2. COPD with severe exacerbation 3. HTN 4. Obesity 5. Hyponatremia Hospital Course: This is a 52 year old male admitted with shortness of breath and tachypnea due to COPD exacerbation and superimposed bacterial pneumonia after influenza A infection. He improved symptomatically with steroids, nebulizers, and antibiotics. He was feeling well the following morning, was not requiring supplemental oxygen, and was discharged home. He will complete 1 week of antiboitics at home with cefdinir and doxycycline (MRSA rates are higher in superimposed infections), and 3 additional days of steroid therapy for COPD exacerbation. He was also provided with prescriptions for an albuterol inhaler and nebulizer. Recommend outpatient follow up with primary care provider for pulmonary function testing after completion of above therapies for formal evaluation of presumed COPD. Time Spent with Patient Time spent: Less than 30 minutes Exam Vital Signs (past 8 hours): - 06/03/23 01:56 06/03/23 04:00 06/03/23 05:00 Temperature 97.8 F Pulse Rate 82 Respiratory Rate 19 Blood Pressure 146/85 H Pulse Oximetry 92 93 93 Oxygen Delivery Method Room Air Room Air Oxygen Flow Rate 0 06/03/23 07:35 06/03/23 08:29 06/03/23 09:00 Temperature 97.2 F L 97.6 F Pulse Rate 77 56 L Respiratory Rate 18 16 Blood Pressure 137/86 101/46 L Pulse Oximetry 93 99 99 Oxygen Delivery Method Room Air Oxygen Flow Rate 0 Oxygen Delivery Method Room Air Oxygen Flow Rate 0 Narrative Exam Narrative: General:? Patient is well developed and well nourished, in no distress at this time. Lungs:? no wheezing Cardio:?RRR Abdomen: S NT ND. Musculoskeletal:? Muscle strength and tone are equal within normal limits, no deformity. Extremities: No edema or joint effusions. No cyanosis or clubbing. Neuro:? Alert and orientated x3,? sensation to touch intact in all extremities, no gross deficits noted of cranial nerves. Psych:? Patient has a well-kept appearance, appropriate affect, mental status attitude thought context and judgment are appropriate for age. Objective Labs 06/03/23 05:20 06/03/23 05:20 Labs: Laboratory Results - last 24 hr 06/02/23 06/02/23 06/02/23 13:40 15:20 15:50 WBC 19.0 H RBC 4.77 Hgb 15.3 Hct 44.4 MCV 92.9 MCH 32.0 MCHC 34.5 RDW 12.9 Plt Count 311 Neut % (Auto) 86.2 H Lymph % (Auto) 5.6 L [place] % (Auto) 7.3 Eos % (Auto) 0.5 L Baso % (Auto) 0.4 Neut # (Auto) 80964 H Lymph # (Auto) 1100 [place] # (Auto) 1400 H Eos # (Auto) 100 Baso # (Auto) 100 ABG Sample Site Right radial ABG pH 7.45 ABG pCO2 38.8 ABG pO2 59 L ABG HCO3 27 ABG Total CO2 28 H ABG O2 Saturation 91 L ABG Base Excess 3.0 FiO2 21 Sodium 134 L Potassium 4.5 Chloride 99 Carbon Dioxide 28 BUN 13 Creatinine 0.59 L Estimated GFR > 60 BUN/Creatinine Ratio 22.0 Glucose 111 H Lactate 1.0 Calcium 9.7 Magnesium Total Bilirubin 0.8 AST 31 ALT 52 H Alkaline Phosphatase 75 Troponin I < 0.012 NT-Pro-B Natriuret Pep 53 Total Protein 8.5 H Albumin 4.1 Globulin 4.4 H Albumin/Globulin Ratio 0.9 L Procalcitonin 06/03/23 05:20 WBC 17.1 H RBC 4.46 L Hgb 14.6 Hct 41.6 MCV 93.2 MCH 32.7 MCHC 35.0 RDW 12.8 Plt Count 292 Neut % (Auto) 90.6 H Lymph % (Auto) 5.4 L Alger % (Auto) 3.4 Eos % (Auto) 0.1 L Baso % (Auto) 0.5 Neut # (Auto) 67114 H Lymph # (Auto) 900 L [place] # (Auto) 600 Eos # (Auto) 0 Baso # (Auto) 100 ABG Sample Site ABG pH ABG pCO2 ABG pO2 ABG HCO3 ABG Total CO2 ABG O2 Saturation ABG Base Excess FiO2 Sodium 134 L Potassium 4.6 Chloride 101 Carbon Dioxide 28 BUN 12 Creatinine 0.56 L Estimated GFR > 60 BUN/Creatinine Ratio 21.4 Glucose 144 H Lactate Calcium 9.8 Magnesium 2.1 Total Bilirubin 0.8 AST 26 ALT 47 Alkaline Phosphatase 68 Troponin I NT-Pro-B Natriuret Pep Total Protein 8.0 Albumin 3.9 Globulin 4.1 Albumin/Globulin Ratio 1.0 Procalcitonin 0.07 [facility] Medical History Hypertension Smoker Surgical History (Updated 06/02/23 @ 17:43 by Neptali James DO) No pertinent past surgical history Family History (Updated 06/02/23 @ 17:43 by Neptali James DO) Mother No pertinent past medical history Father No pertinent past medical history Social History household members: spouse Smoking Status: Current every day smoker alcohol intake: current Discharge Plan Discharge Plan Patient Disposition: Home Provider Discharge Comment: You were admitted to the hospital with shortness of breath, likely due to a bacterial pneumonia after recent flu and COPD exacerbation. Continue steroids and antibiotics, please complete all doses sent to the pharmacy. I have also sent you a prescription for albuterol inhaler and nebulizer to take as needed for wheezing or trouble breathing. Please follow up with your primary care provider, as you should obtain a pulmonary function test when improved to establish a diagnosis of COPD formally. Discharge orders & Medications Prescriptions: New cefdinir 300 mg capsule 300 mg PO BID 6 Days Qty: 12 0RF doxycycline hyclate 100 mg tablet 100 mg PO BID 6 Days Qty: 12 0RF prednisone 20 mg tablet 40 mg PO DAILY 3 Days Qty: 6 0RF albuterol sulfate 1.25 mg/3 mL solution for nebulization 1.25 mg inhalation Q4-6H PRN (Reason: shortness of breath or wheezing) Qty: 75 0RF albuterol sulfate 90 mcg/actuation HFA aerosol inhaler 2 puff inhalation Q6H PRN (Reason: shortness of breath or wheezing) 30 Days Qty: 8.5 0RF (DME) nebulizer and compressor Device See Rx Instructions .Route Qty: 1 0RF Rx Instructions: One nebulizer and compressor Continued lisinopril 40 mg Tablet 40 mg PO BEDTIME Follow up/Referrals: Maria Dolores Edwards ARNP [Primary Care Provider] - Diet/Activity/Treatments Diet: Diet as Tolerated and Regular Activity: As tolerated, no restrictions Visit Report/Discharge Packet Stand Alone Forms: Patient Portal/API, Stroke Signs & Symptoms Discharge Data Primary Care Provider: Maria Dolores Edwards Attending Provider: Neptali James Admeric Date/Time: 06/02/23 16:59 Quality VTE Deep Vein Thrombosis/Pulmonary Embolism Present on Admission: No
--- NOTE | 2023-06-03 11:27 | PC.NURSE ---
Patient is A&Ox4, VSS, on RA. He has a productive cough. He denies needing nebulizer treatment this morning, and denies pain. He does state SOB with activity but still tolerating RA well independently in his room. LS diminished with occasional expiratory wheezing. MD at bedside this a.m. evaluating patient and clears him medically for discharge home with steroids, nebs and antibiotics. He verbalizes understanding of the medications, and recommendation for follow up for official COPD diagnosis. He is escorted via w/ch to front of the hospital for discharge home with at approximately 10:15 a.m. He has all of his belongings with him.
--- NOTE | 2023-06-03 12:11 | CM.DANOTE ---
DCP Assessment Note Brief Patient is a 52yo M here for SOB/pneumonia/COPD exacerbation. PCP Maria Dolores [facility] health plan [employer] reviewed EMR. Per provider, patient to d/c home today. On room air. Patient left prior to being seen by this [employer]. Per chart review, patient indep at home and lives with Lindsey. No CM needs identified at this time. Plan: patient d/c home with support, no needs from CM team. DELFINO Bauer Discharge Planning/Care Management CM Discharge Assessment Start: 06/03/23 12:10 Freq: Status: Active Protocol: Document 06/03/23 12:10 (Rec: 06/03/23 12:11 [email or web address]) Discharge Planning Assessment Assigned Textile Stylist DELFINO Kaminski DPOA/Assigned Designee Name Lindsey Andujar (spouse) Contact Information [phone] Advance Directives? Yes: melinda Portillo Advance Directives on File No History Provided By Medical Record Prior Living Arrangements House Household Members spouse Barriers to Discharge No Discharge Plan Home Whiteboard Updated in Patient Room with No name and ext. # of Textile Stylist Review Status In Process Next Review Type Continued Stay Review
== END 2023-06-03 10:15 | disposition home or self-care (01) ==
LOC: ED 13:28 → AC 17:00
PROVIDERS: Admitting Provider Internal Medicine; Emergency Provider Emergency Medicine; PCP Nurse Practitioner Family; Referring Provider Emergency Medicine; Visit Provider Internal Medicine
DX: J10.01 Influenza due to other identified influenza virus with the same other identified influenza virus pneumonia (principal); E87.1 Hypo-osmolality and hyponatremia; I10 Essential (primary) hypertension; R06.09 Other forms of dyspnea; F17.210 Nicotine dependence, cigarettes, uncomplicated; E66.9 Obesity, unspecified
CPT/HCPCS: 36415; 36600; 71046; 71275; 80053; 82805; 83605; 83735; 83880; 84145; 84484; 85025; 87040; 87070; 87205; 94640; 96365; 96367; 96372; 96375; 99284; 99285; G0378; J0696; J1650; J1885; J2543; J2930; J7613; Q9967

== ENCOUNTER → 2024-04-08 08:09 | Outpatient (CLI) | payer BC, OTHER, SELFPAY ==
[2023-09-23 11:22] VITALS: BMI 34.9
== END ==
PROVIDERS: PCP Nurse Practitioner Family; Referring Provider Internal Medicine Critical Care Medicine; Visit Provider Internal Medicine Critical Care Medicine
DX: J44.9 Chronic obstructive pulmonary disease, unspecified (principal); R05.9 Cough, unspecified; F17.210 Nicotine dependence, cigarettes, uncomplicated; R94.2 Abnormal results of pulmonary function studies; J43.2 Centrilobular emphysema
CPT/HCPCS: 94060; 94726; 94729

== ENCOUNTER → 2024-12-02 13:15 | Outpatient (CLI) | payer BC, OTHER, SELFPAY ==
[2023-09-23 11:22] VITALS: BMI 34.9
--- NOTE | 2024-12-02 13:17 | DI.CT.S_ITS ---
PROCEDURE: CT LUNG LOW DOSE SCREENING INDICATIONS: HX OF TOBACCO USE TECHNIQUE: Noncontrast 2.0-2.5 mm thick sections acquired from the pulmonary apices to the posterior costophrenic angles. 7 mm thick axial MIP, and 5 mm coronal and sagittal reformats were then acquired. For radiation dose reduction, the following was used: automated exposure control, adjustment of mA and/or kV according to patient size. COMPARISON: CT, CT ANGIO CHEST PE PROTOCOL, 06/02/2023, 14:55. FINDINGS: Image quality: Diagnostic. Lower Neck: No enlarged lymph nodes. Thyroid: No thyroid nodules which require sonographic follow up, per consensus guidelines. Axillae: No enlarged lymph nodes. Chest Wall: Unremarkable. Bones: Unremarkable. Lungs and Pleura: No pneumothorax or pleural effusions. No consolidation or suspicious nodules. Heart: Heart size is normal. No pericardial effusion. Thoracic Vessels: The aorta and pulmonary arteries demonstrate normal size. Mediastinum and Lucia: No enlarged lymph nodes. Esophagus: No wall thickening. No hiatal hernia. Upper Abdomen: Visualized upper abdomen solid organs and bowel loops appear normal. IMPRESSION: No suspicious pulmonary nodules. LUNG-RADS 1; continued annual screening, if eligible. Clinically Significant Non-pulmonary Findings: None. Dictated by: Becka Murillo M.D. on 12/03/2024 at 12:16 Approved by: Becka Murillo M.D. on 12/03/2024 at 12:18
== END ==
PROVIDERS: PCP Nurse Practitioner Family; Referring Provider Nurse Practitioner Family; Visit Provider Nurse Practitioner Family
DX: Z87.891 Personal history of nicotine dependence (principal)
CPT/HCPCS: 71271